=== PATIENT | male | born 1970 | race Caucasian/White ===

== ENCOUNTER 2019-04-23 06:35 | Day surgery (SDC) | payer BC ==
[~2019-04-23 06:35] MED LIST: ACETAMINOPHEN 1,000 MG/100 ML BTL IVPB ONE; CEFAZOLIN 2 Gram 2 GM/50 ML BAG IVPB ONE
[2019-04-23] MEDS ORDERED: MIDAZOLAM HCL 2MG/2ML VIAL IV ONE (06:36)
[2019-04-23] MEDS ORDERED: GLYCOPYRROLATE 0.2 MG/ML ML IV ONE (06:36)
[2019-04-23] MEDS ORDERED: DEXAMETHASONE 4 MG/ML 1ML VIAL IVP ONE (06:36)
[2019-04-23] MEDS ORDERED: BUPIVACAINE LIPOSOME/PF 133MG/10ML VIAL IV ONE (06:36)
[2019-04-23] MEDS ORDERED: BUPIVACAINE 0.25% MPF 30ML VIAL IVP ONE (06:36)
[2019-04-23] MEDS ORDERED: FENTANYL PF 100MCG/2ML VIAL IV ONE (06:36)
[2019-04-23] MEDS ORDERED: KETOROLAC 30 MG/ML VIAL IVP ONE (06:36)
[2019-04-23] MEDS ORDERED: LIDOCAINE 2% MDV (20MG/ML) 20ML VIAL IV ONE (06:36)
[2019-04-23] MEDS ORDERED: PROPOFOL 10 MG/ML VIAL IV ONE (06:36)
[2019-04-23] MEDS ORDERED: RINGERS SOLUTION,LACTATED 1,000 ML IV ONE ×2 (07:25→10:31)
[2019-04-23] MEDS ORDERED: METHYLPREDNISOLONE 40MG/VIAL IU ONE (09:42)
[2019-04-23] MEDS ORDERED: BUPIVACAINE 0.5% W/EPI MPF 30 ML VIAL SQ ONE (09:42)
[2019-04-23] MEDS ORDERED: MORPHINE SULFATE 10MG/1ML **1ML VIAL IU ONE (09:42)
--- NOTE | 2019-04-24 07:21 | Operative Note ---
DATE OF SURGERY: 04/23/2019 PREOPERATIVE DIAGNOSIS: Tear of the rotator cuff on the right. POSTOPERATIVE DIAGNOSES: 1. 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 2. Severe synovitis, right shoulder. 3. Profound external impingement, right shoulder. 4. Arthrosis, right distal clavicle. OPERATION: 1. Repair of a large chronic tear of the rotator cuff on the right. 2. Right shoulder arthroscopy with complete synovectomy. 3. Right shoulder open acromioplasty, CA ligament resection, subacromial bursectomy. 4. Right shoulder distal clavicle resection. STAFF SURGEON: Jace Trevizo MD ANESTHESIA: General. PREPARATION: Chloraprep. INDIVIDUAL CONSIDERATIONS: None. PROCEDURE: The patient was taken to the operating room, placed supine on the operating room table. He had a prior interscalene block, was given sedation, and then placed in a semi-seated beach chair position. His right arm and shoulder were prepped and draped in the usual fashion. The patient had a posterior portal identified for arthroscopy. Skin was infiltrated with 0.5% Marcaine with epinephrine prior. An 18-gauge spinal needle was easily placed in the joint, and the joint was inflated with normal saline with a 60-mL syringe. A stab wound was made, and a blunt-tipped trocar for the scope was placed in the joint. The joint was inflated with normal saline. An anterior accessory portal was then made just inferior to the intact long head of the biceps tendon in a retrograde fashion with a Wissinger nancy, and the joint was irrigated out. The patient had obvious synovitis throughout which was debrided with a shaver. An obvious large tear of the rotator cuff at the supraspinatus extending into the infraspinatus which as macerated. Subscap was normal. Glenohumeral joint was normal. No loose bodies were seen. After irrigation, portals were closed with zaina. The patient had an anterior approach to the subacromial space and distal clavicle. Skin was again infiltrated with 0.5% Marcaine with epinephrine prior. Sharp dissection carried down through skin and subcutaneous tissues. Small veins were coagulated with a Bovie. An anterior deltoid interval was developed. Care was taken not to split the deltoid more than about 4 cm distal to the anterior tip of the acromion to prevent injury to the axillary nerve. Once in the subacromial space, there was a large donaldson of fluid consistent with a large tear. Deltoid was then taken subperiosteally off the anterior aspect of the acromion, off the highly degenerated anterior aspect of the distal clavicle. CA ligament was resected with a Bovie. Distal clavicle was resected with an oscillating saw taking about 1 cm. Huge anterior spurs in the acromion. An anterior acromioplasty was performed tapering towards posteromedially to include the spurs at the AC joint. The undersurface was smoothed off with a rasp. A very thick bursitis was debrided out. The patient had an obvious large tear of the supraspinatus. It was macerated with a large about 1 to 1.5 cm wide flap of almost free supraspinatus tendon which had ripped off the tuberosity with maceration on either side. After debriding out nonviable areas, I brought that one large strip back to the tuberosity through a trough made by a uli with #1 Ethibond sutures. I used a few #1 Ethibond buried knot sutures on either side to repair [id number] maceration, and then laterally I was able to bring the repaired strand and strap to the body of the remaining infraspinatus that was left. I would say I was able to probably restore maybe 70% of what was torn, which was pretty much all the supraspinatus and about half the infraspinatus. After irrigation, I put the shoulder through a full range of motion to ensure no further impingement. The deltoid was then reattached to the remaining acromion with multiple interrupted #2 Vicryl going directly through the bony acromion. The anterior deltoid interval was then closed with running #1 Vicryl. Periosteal cuff was closed with running #2 Vicryl. Subcu was closed with 2-0 plus Vicryl in layers and skin was closed with zaina. Then 10 mL of 0.5% Marcaine with epinephrine along with 4 mg of morphine was injected into the subacromial space through a sterile 18-gauge spinal needle. A sterile bulky compressive dressing and sling were applied. The patient tolerated the procedure well. Needle and sponge counts were correct. Estimated blood loss was minimal. He was taken back to recovery in good condition. There were no complications. [facility]
== END 2019-04-23 12:15 | disposition home or self-care (01) ==
LOC: SUR 06:35
PROVIDERS: ATTEND Orthopaedic Surgery
DX: M75.101 Unspecified rotator cuff tear or rupture of right shoulder, not specified as traumatic (principal); M65.9 Synovitis and tenosynovitis, unspecified; M75.41 Impingement syndrome of right shoulder; M19.011 Primary osteoarthritis, right shoulder; J45.909 Unspecified asthma, uncomplicated; K21.9 Gastro-esophageal reflux disease without esophagitis
CPT/HCPCS: 76942; 93005; C9290; J1030; J1885; J2270; J7120